=== PATIENT | female | born 1970 | race Caucasian/White ===

== ENCOUNTER → 2016-12-24 | Outpatient (CLI) | payer OTHER | END | disposition home or self-care (01) | LOC: C.LAB 17:30 | PROVIDERS: ATTEND Family Medicine | DX: E27.40 Unspecified adrenocortical insufficiency (principal); E03.9 Hypothyroidism, unspecified ==

== ENCOUNTER → 2017-03-11 | Outpatient (CLI) | payer OTHER | END | disposition home or self-care (01) | LOC: C.PAPS 13:43 | PROVIDERS: ATTEND Physician Assistant | DX: Z12.4 Encounter for screening for malignant neoplasm of cervix (principal) ==

== ENCOUNTER → 2017-06-03 | Outpatient (CLI) | payer OTHER ==
--- NOTE | 2017-06-03 09:57 | DIAGNOSTIC IMAGING REPORT ---
ABDOMEN 2VIEW W/PA CHEST RTN HISTORY: 47 years-old Female CONSTIPATION acute constipation COMPARISON: Chest radiograph 02/13/2015 TECHNIQUE: PA view the chest with erect and supine views of the abdomen FINDINGS: Cardiomediastinal and hilar silhouettes are within normal limits. Slightly increased symmetric density of the bilateral lung bases likely secondary to overlying soft tissue from breast parenchyma. No pneumothorax, pleural effusion, focal airspace consolidation or overt pulmonary edema. There are several healed remote left-sided rib fractures. Mild degenerative changes of the bilateral shoulders. No pneumoperitoneum on the upright projection. No urolith identified. Probable phleboliths noted within the pelvis. Moderate stool volume involves the cecum, ascending and transverse colon with mostly mild stool volume seen within the remainder of the colon. Bowel gas pattern is nonobstructive. Scattered radiodensities within the distribution of the hepatic flexure suggest ingested material. No pneumatosis. IMPRESSION: 1. No acute process of the chest. 2. Nonobstructive bowel gas pattern. 2. Moderate volume of formed colonic stool, notably extending from the cecum to the splenic flexure suggests constipation. The above report was generated using voice recognition software. It may contain grammatical, syntax or spelling errors. Electronically signed by: Meliton Carrillo M.D. 06/03/2017 9:56 AM Dictated Date/Time: 06/03/2017 9:52 AM
== END | disposition home or self-care (01) ==
LOC: C.RAD1850 08:39
PROVIDERS: ATTEND Family Medicine
DX: K59.00 Constipation, unspecified (principal)